=== PATIENT | female | born 1960 | race Caucasian/White ===

== ENCOUNTER 2024-03-05 15:33 | Emergency (ER) | payer OTHER, MEDICARE ==
[2024-03-05] MEDS ORDERED: IBUPROFEN 600 MG TABLET (FP) PO ONE (15:38)
[2024-03-05] MEDS ORDERED: ACETAMINOPHEN 325 MG TABLET (FP) ONE (16:03)
[2024-03-05] MEDS: ACETAMINOPHEN 325 MG TABLET (FP) PO ONE (16:06)
[2024-03-05 16:16] VITALS: BP 106/64; PULSE 69; RESP 20; TEMP 98.2; BMI 19.5
== END 2024-03-05 16:37 | disposition home or self-care (01) ==
LOC: FER 15:33
DX: S90.32XA Contusion of left foot, initial encounter (principal); W20.8XXA Other cause of strike by thrown, projected or falling object, initial encounter; Y93.E1 Activity, personal bathing and showering
CPT/HCPCS: 73630-TC-LT; 99283-25